=== PATIENT | male | born 1985 | race Caucasian/White ===

== ENCOUNTER 2020-06-30 21:44 | Emergency (ER) | payer BC, OTHER ==
[~2020-06-30] VITALS: Ht 190.5 cm; Wt 127.0 kg
[2020-06-30 23:24] VITALS: BP_SYST 145; BP_SYST 148; BP_DIAS 71
--- NOTE | 2020-07-01 00:16 | ER.PDOC ---
General Chief Complaint: Cough/Congestion Stated Complaint: COVID-19 EXPOSURE TRAVEL OUT OF US: No Time seen by MD: 23:15 Source: patient Exam Limitations: no limitations History of Present Illness Initial Comments Pt's daughter came down with Covid. Pt has had no symptoms at all and has quarietined for 14 days. Pt just cant go to work without a neg test. Timing/Duration: other (exposed 2 weeks ago by daughter) Associated Symptoms: denies symptoms Allergies: Coded Allergies: No Known Allergies (Unverified , 03/01/14) Past Medical History Medical History: no pertinent history Surgical History: other (multiple back surgeries.) Family History Significant Family History: no pertinent family hx Social History Smoking: chew, less than 1 pack/day Alcohol Use: none Drug Use: none Review of Systems All Other Systems: Reviewed and Negative Physical Exam General Appearance: No Apparent Distress, WD/WN EENT: eyes nml inspection, nml ENT inspection, pharynx nml Neck: Non-Tender, Full Range of Motion Respiratory: chest non-tender, lungs clear, normal breath sounds, no respiratory distress CVS: reg rate & rhythm, no murmur, no gallop, pulses nml Gastrointestinal: Normal Bowel Sounds, No Organomegaly, No Pulsatile Mass, Non Tender, Absent bowel sounds Extremities: Normal Range of Motion Neurologic/Psychiatric: mold closer II-XII NML as Tested, No Motor/Sensory Deficits, Alert, Normal Mood/Affect, Oriented x 3 Skin: Normal Color, Warm/Dry Lymphatic: No Adenopathy Results/Orders Results/Orders Orders - DAX VELASCO MD Covid19 Antigen Liza Merlos (06/30/20 23:33) Vital Signs Date Time Temp Pulse Resp B/P (MAP) Pulse Ox O2 Delivery O2 Flow Rate FiO2 06/30/20 23:24 98.3 87 18 06/30/20 23:24 98.3 87 18 98 06/30/20 23:24 98.3 87 18 148/71 (96) 98 Laboratory Tests Test 06/30/20 23:19 SARS-CoV-2 Antigen (Rapid) NEGATIVE (NEGATIVE) Progress Progress Rapid covid test is neg. Pt given note to return to work ER DEPART Departure Time of Disposition: 00:16 Disposition: 01 HOME, SELF-CARE Impression: Primary Impression: COVID-19 ruled out Condition: Stable Referrals: SUZIE FOUNTAIN MD (PCP) PRIMARY CARE PROVIDER Duration or Time Spent with Pa: 10m DAX VELASCO MD Jul 01, 2020 00:16
--- NOTE | 2020-07-01 00:24 | NUR ---
COVID RESULTS PATIENT IS A [employer] EMPLOYEE, STATES HE NEEDS A NEGATIVE RESULT TO RETURN TO WORK TONIGHT. PER POLICY, PATIENT QUALIFIES TO BE TESTED WITH RAPID COVID SWAB.
== END 2020-07-01 00:26 | disposition home or self-care (01) ==
LOC: ER 21:44
DX: Z11.59 Encounter for screening for other viral diseases (principal); F17.210 Nicotine dependence, cigarettes, uncomplicated; Z20.828 Contact with and (suspected) exposure to other viral communicable diseases
CPT/HCPCS: 36415; 87426; 99283

== ENCOUNTER 2020-08-18 09:50 | Emergency (ER) | payer OTHER ==
[~2020-08-18] VITALS: Ht 193 cm; Wt 129.3 kg
[2020-08-18 10:04] VITALS: BP 142/66
--- NOTE | 2020-08-18 10:29 | ER.PDOC ---
General Chief Complaint: Male Stated Complaint: MALE Time seen by MD: 10:29 Source: patient Exam Limitations: no limitations History of Present Illness Initial Comments Patient c/o dysuria and genital rash x 1 week--concerned for possible STD. Timing/Duration: week Severity/Quality: moderate Location: urethral Associated Symptoms: Dysuria Sexual History: Unprotected intercourse Prior symptoms/Treatment: Similar symptoms previous Allergies: Coded Allergies: No Known Allergies (Unverified , 03/01/14) Past Medical History Medical History: other Surgical History: appendectomy, back, gastric bypass, tonsillectomy Family History Significant Family History: no pertinent family hx Social History Smoking: non-smoker Alcohol Use: occassionally Drug Use: none Review of Systems Constitutional: denies no symptoms reported, denies see HPI, denies chills, denies diaphoresis, denies fever, denies malaise, denies weakness, denies other EENTM: denies no symptoms reported, denies see HPI, denies eye pain, denies lore rred vision, denies tearing, denies double vision, denies ear pain, denies ear discharge, denies nose pain, denies nose congestion, denies throat pain, denies throat swelling, denies mouth pain, denies mouth swelling, denies other Respiratory: denies no symptoms reported, denies see HPI, denies cough, denies orthopnea, denies shortness of breath, denies stridor, denies wheezing, denies other Cardiovascular: denies no symptoms reported, denies see HPI, denies chest pain, denies edema, denies palpitations, denies syncope, denies other Gastrointestinal: denies no symptoms reported, denies see HPI, denies abdominal pain, denies constipation, denies diarrhea, denies nausea, denies vomiting, denies other Genitourinary: see HPI Musculoskeletal: denies no symptoms reported, denies see HPI, denies back pain, denies gout, denies joint pain, denies joint swelling, denies muscle pain, denies muscle stiffness, denies neck pain, denies other Skin: denies no symptoms reported, denies see HPI, denies change in color, denies change in hair/nails, denies dryness, denies lesions, denies lumps, denies rash, denies other All Other Systems: Reviewed and Negative Physical Exam General Appearance: No Apparent Distress, WD/WN EENT: eyes nml inspection, nml ENT inspection Neck: nml inspection, non-tender Cardiovascular/Respiratory: Regular Rate, Rhythm, Normal Breath Sounds, No Respiratory Distress Abdomen: Non Tender, Soft Extremities: Non-Tender, Normal Inspection, No Pedal Edema, No Calf Tenderness Neurologic/Psychiatric: Alert, Normal Mood/Affect, Oriented x 3 Skin: Normal Color, Warm/Dry Results/Orders Results/Orders Orders - ESTELA SPEAR DO Ceftriaxone Sodium (Rocephin) (08/18/20 10:42) Ceftriaxone Sodium (Rocephin) (08/18/20 10:46) Vital Signs Date Time Temp Pulse Resp B/P (MAP) Pulse Ox O2 Delivery O2 Flow Rate FiO2 08/18/20 10:04 98.1 70 16 97 08/18/20 10:04 98.1 70 18 08/18/20 10:04 98.1 70 18 142/66 (91) 97 Room Air Progress Progress we will treat presumptively ER DEPART Departure Time of Disposition: 10:52 Disposition: 01 HOME, SELF-CARE Impression: Primary Impression: Dysuria Additional Impression: Urethritis Condition: Stable Patient Instructions: Urethritis, Adult Referrals: SUZIE FOUNTAIN MD (PCP) PRIMARY CARE PROVIDER Additional Instructions: Take antibiotics as prescribed until all gone. Follow up with your doctor next week for reevaluation. If you want testing for STDs, see your PCP or the [facility]. You partner should be evaluated/treated as necessary (at PCP office of Health Department). Duration or Time Spent with Pa: 10 min Problem Qualifiers ESTELA SPEAR DO Aug 18, 2020 10:29
[2020-08-18] MEDS ORDERED: ROCEPHIN IM STA (10:42)
[2020-08-18] MEDS ORDERED: ROCEPHIN ONE (10:46)
[2020-08-18 11:09] VITALS: BP 129/69
== END 2020-08-18 11:09 | disposition home or self-care (01) ==
LOC: ER 09:50
DX: N34.2 Other urethritis (principal)
CPT/HCPCS: 96372; 99283; J0696